=== PATIENT | male | born 1955 | race African-American/Black ===

== ENCOUNTER → 2017-08-26 | Day surgery (SDC) | payer OTHER ==
[~2017-08-26] MED LIST: LIDOCAINE 1% PF 2 ML VIAL. ID; LIDOCAINE 2% PF Vial for OR 5 ML VIAL.; MIDAZOLAM HCL/PF 2 MG/2 ML VIAL. IV; PROPOFOL 40 ML IV; fentaNYL PF VIAL 100 MCG/2 ML VIAL IV
[2017-08-26] MEDS: IV NORMAL SALINE 1000ML BAG 1,000 ML IV ×2 (12:32)
== END | disposition home or self-care (01) ==
LOC: SURG 11:38
DX: Z09 Encounter for follow-up examination after completed treatment for conditions other than malignant neoplasm (principal); Z86.010 Personal history of colon polyps; E11.9 Type 2 diabetes mellitus without complications; Z86.69 Personal history of other diseases of the nervous system and sense organs; Z86.39 Personal history of other endocrine, nutritional and metabolic disease
CPT/HCPCS: 45385; 88305; J2704

== ENCOUNTER 2018-12-03 15:44 | Emergency (ER) | payer OTHER ==
[~2018-12-03] VITALS: Ht 182.9 cm; Wt 104.3 kg
[~2018-12-03 15:44] MED LIST changes: +ALLO100T PO; +AMLO10TA8 PO; +ATEN100T PO; +ATOR80TA72 PO; +DOXA8TAB59 PO; +GABA300C18 PO; +INSU100I13 SQ; -LIDOCAINE 1% PF 2 ML VIAL. ID; -LIDOCAINE 2% PF Vial for OR 5 ML VIAL.; -MIDAZOLAM HCL/PF 2 MG/2 ML VIAL. IV; -PROPOFOL 40 ML IV; -fentaNYL PF VIAL 100 MCG/2 ML VIAL IV
[2018-12-03 16:32] VITALS: BP 126/66
--- NOTE | 2018-12-03 17:03 | PHYS DOC ---
Past Medical History Past Medical History: Diabetes-Type II Past Surgical History: No Surgical History Alcohol Use: None Drug Use: None Adult General Chief Complaint Chief Complaint: SKIN RASH/ABSCESS HPI HPI Patient is a 63 year old male presents with a blister to his right third digit. States he woke up one morning and the blister was there. No associated symptoms. Rates the discomfort as 4 out of 10. Has not tried any medication at home. Review of Systems Review of Systems Constitutional: Denies fever or chills [] Eyes: Denies change in visual acuity, redness, or eye pain [] HENT: Denies nasal congestion or sore throat [] Respiratory: Denies cough or shortness of breath [] Cardiovascular: No additional information not addressed in HPI [] GI: Denies abdominal pain, nausea, vomiting, bloody stools or diarrhea [] : Denies dysuria or hematuria [] Musculoskeletal: Denies back pain or joint pain [] Integument: Denies rash or skin lesions with exception of blister to R third digit. Neurologic: Denies headache, focal weakness or sensory changes [] Endocrine: Denies polyuria or polydipsia [] Complete systems were reviewed and found to be within normal limits, except as documented in this note. Allergies Allergies Allergies Coded Allergies Type Severity Reaction Last Updated Verified No Known Drug Allergies 08/26/17 No Physical Exam Physical Exam Constitutional: Well developed, well nourished, no acute distress, non-toxic appearance. [] HENT: Normocephalic, atraumatic, bilateral external ears normal, oropharynx moist, no oral exudates, nose normal. [] Eyes: PERRLA, EOMI, conjunctiva normal, no discharge. [] Neck: Normal range of motion, no tenderness, supple, no stridor. [] Cardiovascular:Heart rate regular rhythm, no murmur [] Lungs & Thorax: Bilateral breath sounds clear to auscultation [] Abdomen: Bowel sounds normal, soft, no tenderness, no masses, no pulsatile masses. [] Skin: Warm, dry, no erythema, no rash. Has blister to R third digit. Has normal sensation in the finger. No cuts or bites. Back: No tenderness, no CVA tenderness. [] Extremities: No tenderness, no cyanosis, no clubbing, ROM intact, no edema. [] Neurologic: Alert and oriented X 3, normal motor function, normal sensory function, no focal deficits noted. [] Psychologic: Affect normal, judgement normal, mood normal. [] Current Patient Data Vital Signs Vital Signs Date Time Temp Pulse Resp B/P (MAP) Pulse Ox O2 Delivery O2 Flow Rate FiO2 12/03/18 16:32 97.8 80 18 126/66 (86) 97 Room Air 97.8 EKG EKG [] Radiology/Procedures Radiology/Procedures [] Course & Med Decision Making Course & Med Decision Making Pertinent Labs and Imaging studies reviewed. (See chart for details) Will have patient observe the blister. Unknown origin of blister. Patient does not remember burning himself. Recommended to patient not to pop the blister. Will d/c home to follow up with pcp. Evan Disclaimer Evan Disclaimer This electronic medical record was generated, in whole or in part, using a voice recognition dictation system. Departure Departure Impression: Primary Impression: Blister Disposition: HOME, SELF-CARE Condition: STABLE Referrals: LEIGHTON NUÑEZ MD (PCP) Patient Instructions: Blisters Additional Instructions: Please follow up with your primary care doctor as needed. Come back to ER if s ymptoms worsen. Do not pop the blister. STEFANI HERNANDEZ APRN December 03, 2018 17:03
== END 2018-12-03 17:10 | disposition home or self-care (01) ==
LOC: ER 15:44
DX: S60.422A Blister (nonthermal) of right middle finger, initial encounter (principal); E11.9 Type 2 diabetes mellitus without complications; X08.8XXA Exposure to other specified smoke, fire and flames, initial encounter; Y93.89 Activity, other specified; Y92.89 Other specified places as the place of occurrence of the external cause; Y99.8 Other external cause status
CPT/HCPCS: 99281

== ENCOUNTER → 2019-09-18 | Day surgery (SDC) | payer OTHER ==
[~2019-09-18] MED LIST changes: +INSU3INS2 SQ; +IV RINGERS,LACTATED 1000ML 1,000 ML IV SCH; +LIDOCAINE 2% PF 5 ML VIAL. ONE; +PROPOFOL 40 ML IV ONE
--- NOTE | 2019-09-18 14:26 | PDOC4 ---
PROCEDURE Procedure Colonoscopy with biopsies Indication: h/o TVA, last 2017. Meds; per anesthesia Findings: THUAN, normal. --Scope advanced to cecum. Mucosa normal. Prep fair. --6-7mm sessile polyp, hepatic flexure, biopsied off. --Grade I internal hemorrhoids on retroflex. --Otherwise normal. Juan Pablo. well. IMP: one polyp. Internal hemorrhoids. REC: Await path. Resume home meds and diet. Repeat exam pending path. STEFANI BREWER MD Sep 18, 2019 14:26
[2019-09-18 14:37] VITALS: BP 147/70
--- NOTE | 2019-09-20 18:06 | PATHOLOGY ---
[facility] Accession Number: [id number] . 01 Material submitted: . hepatic flexure - HEPATIC FLEXURE POLYP . 01 Clinical history: . screening . 02 Diagnosis: Colon biopsies, hepatic flexure polyp: - Tubular adenoma. . ([facility]:mm; 09/20/2019) REPLACED BY [facility] 09/20/2019 0938 Local . 02 Comment: There is no high grade dysplasia or evidence of malignancy. . ([facility]:mml; 09/20/2019) . 02 Electronically signed: . Jacobo Pierce MD, Pathologist NPI- [id number] . 01 Gross description: . The specimen is received in formalin, labeled "Ulises Mujica, Carrillo, hepatic flexure polyp" and consists of 2 fragments of pink-lopez tissue measuring 0.3 x 0.1 cm and 0.4 x 0.3 cm which are entirely submitted in A1. (SDY; 09/19/2019) SYU/SYU 09/19/2019 1109 Local . 02 Pathologist provided ICD-10: D12.3 . 02 CPT . 127617 Specimen Comment: A courtesy copy of this report has been sent to [phone], [phone] Specimen Comment: [id number] Specimen Comment: Report sent to / DR VELOZ Performed at: 01 [facility] [address], [place] [id number] MD Chi Rice MD Phone: [phone] Performed at: 02 [facility] [address] [place], [place] [id number] MD Jacobo Pierce MD Phone: [phone]
== END ==
LOC: ENDOS 12:43
PROVIDERS: ATTEND Internal Medicine Gastroenterology
DX: Z12.11 Encounter for screening for malignant neoplasm of colon (principal); D12.3 Benign neoplasm of transverse colon; K64.0 First degree hemorrhoids; M10.9 Gout, unspecified; E11.22 Type 2 diabetes mellitus with diabetic chronic kidney disease; I12.9 Hypertensive chronic kidney disease with stage 1 through stage 4 chronic kidney disease, or unspecified chronic kidney disease; N18.9 Chronic kidney disease, unspecified; E78.00 Pure hypercholesterolemia, unspecified; N40.0 Benign prostatic hyperplasia without lower urinary tract symptoms; E66.9 Obesity, unspecified; Z68.33 Body mass index [BMI] 33.0-33.9, adult; Z86.010 Personal history of colon polyps; Z79.84 Long term (current) use of oral hypoglycemic drugs; Z87.891 Personal history of nicotine dependence
CPT/HCPCS: 45380; J2001; J2704; 88305